=== PATIENT | female | born 1975 | race Caucasian/White ===

== ENCOUNTER 2024-01-28 10:40 | Outpatient (CLI) | payer OTHER, SELFPAY ==
[2024-02-04 03:28] LABS: Estradiol, Ultrasensitive 225 pg/mL
== END 2024-01-28 10:41 | disposition home or self-care (01) ==
LOC: ANHLAB 10:43
PROVIDERS: PCP Internal Medicine; Visit Provider Student in an Organized Health Care Education/Training Program
DX: N95.1 Menopausal and female climacteric states (principal)
CPT/HCPCS: 36415; 82670; 83001; 84443

== ENCOUNTER 2025-03-30 09:20 | Outpatient (CLI) | payer OTHER, SELFPAY ==
--- OUTSIDE RECORDS SUMMARY | 2025-03-30 09:35 | XMS_ITS | Referral Summary ---
Author Organization [facility] Medical Office Building A Address [address] [place] [address] Care Team Providers Care Supervisor Electron Tube Processing Name Role Phone Jose Enrique Antonio MD Primary Care Provider + Encounters Date Type Department Care Team Description 02/02/2025 Results Follow-Up [facility] Primary Care at [address] [place] [address] Charlie Dalton MD XR Hip Right 2 or 3 Views 01/27/2025 10:58 AM CDT - 01/27/2025 11:59 PM CDT Hospital Encounter [facility] [address] [place] [address] Right hip pain Discharge Disposition: Discharge to home or self care from Last 3 Months Allergies Active Allergy Reactions Criticality Noted Date Comments Cat Hair Standardized Allergenic Extract Medications levothyroxine (SYNTHROID, LEVOTHROID) 50 mcg tablet TAKE 1 TABLET BY MOUTH ONE TIME PER DAY. 30 tablet 7 Active jdeztmtm-kiw-ad rrous gluconate (CENTRUM) 0.6 mg iron/mL liquid Active iron 18 mg tablet Take by mouth Active cholecalciferol (VITAMIN D-3) 25 mcg (1,000 unit) tablet Take 1 tablet (1,000 Units total) by mouth daily Active albuterol HFA (PROVENTIL HFA,VENTOLIN HFA,PROAIR HFA) 90 mcg/actuation inhaler Inhale 2 puffs every 4 (four) hours as needed for wheezing 1 each 1 Active albuterol 2.5 mg /3 mL (0.083 %) nebulizer solution Take 3 mL (2.5 mg total) by nebulization every 6 (six) hours as needed for wheezing 75 mL 1 Active escitalopram (LEXAPRO) 20 mg tablet 3 Active fluconazole (DIFLUCAN) 150 mg tabletIndicatio ns:Antibiotic-i nduced yeast infection Take 1 tablet (150 mg total) by mouth as directed Take one tab now. Repeat in 7 days if symptoms persist. 2 tablet 3 Active Additional Information Patient not taking.Reported on 04/25/2024 triamterene-hyd roCHLOROthiazid e 37.5-25 mg per tablet/capsule Take 1 tablet/capsule by mouth daily Active Active Problems Problem Noted Date Diagnosed Date COVID-19 09/08/2021 Healthcare maintenance 05/25/2017 Medication management 05/25/2017 Hypothyroidism 01/30/2014 Overview (12/20/2016): HYPOTHYROIDISM NOS Vitamin D deficiency 10/09/2012 Overview (12/20/2016): VITAMIN D DEFICIENCY NOS Immunizations Immunization Administration Dates Next Due MMR 04/27/2013 Tdap 07/07/2007 Social History Tobacco Use Types Packs/Day Years Used Date Smoking Tobacco: Never Smokeless Tobacco: Never Alcohol Use Standard Drinks/Week Comments No 0 (1 standard drink = 0.6 oz pur e alcohol) Comments No Sex and Gender Information Value Date Recorded Sex Assigned at Not on file 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 Gender Identity Not on file Sexual Orientation Not on file Last Filed Vital Signs Vital Sign Reading Time Taken Comments Blood Pressure 122/74 04/25/2024 2:36 PM CDT Pulse 54 04/25/2024 2:36 PM CDT Temperature 36.6 C (97.8 F) 04/25/2024 2:36 PM CDT Respiratory Rate 18 04/25/2024 2:36 PM CDT Oxygen Saturation 97% 04/25/2024 2:36 PM CDT Inhaled Oxygen Concentration - - Weight 72.6 kg (160 lb) 04/25/2024 2:36 PM CDT Height 176.5 cm (5' 9.5) 12/12/2022 7:17 PM CDT Body Mass Index 23.29 12/12/2022 7:17 PM CDT Plan of Treatment Not on file Medical Devices Implanted Type Area Armature Connector Device Identifier Shelf Expiration Date Model / Serial / Lot Bard Peripheral Vascular [id number] Ultraclip Bard 17ga 10cm 2 Trigger Permanent Ultrasound - [id number] - [id number] Implanted:Qty: 1 on 12/31/2019 by Lavon Langley MD at [facility] Breast Right: Breast Bard Peripheral Vascular 10/13/2022 [id number] / [id number] / Procedures Procedure Name Priority Date/Time Associated Diagnosis Comments XR HIP RIGHT 2 OR 3 VIEWS Schedule Routine, Read Routine (OP Routine) 01/27/2025 11:10 AM CDT Right hip pain DIAGNOSTIC MAMMOGRAM BILATERAL W OCTAVIO Schedule Routine, Read Routine (OP Routine) 05/27/2024 11:02 AM CDT Mass of breast, unspecified laterality from Last 3 Months or Most Recently Relevant to Health Maintenance Results * XR Hip Right 2 or 3 Views (01/27/2025 11:10 AM CDT) Anatomical Region Laterality Modality Lower Extremities, Hip, Pelvis Right C omputed Radiography 02/01/2025 3:43 PM CDT Narrative 02/01/2025 3:44 PM CDT EXAM DESCRIPTION: XR HIP RIGHT 2 OR 3 VIEWS REASON FOR STUDY: other Pt states pain in the right hip when running or walking quickly x 2 - 3 months Denies any injuries / surgeries / hx of fractures FINDINGS: Two views submitted without comparison. No acute fracture. Alignment is normal. The right hip joint space is normal. IMPRESSION: Normal right hip joint space evaluation. THIS IS AN ELECTRONICALLY VERIFIED FINAL REPORT 02/01/2025 3:44 PM - Electronically signed by Madi Hein M.D. MF: [email or web address] Report ID: [id number] Reading Location: [id number] Procedure Note Madi Hein MD - 02/01/2025 EXAM DESCRIPTION: XR HIP RIGHT 2 OR 3 VIEWS REASON FOR STUDY: other Pt states pain in the right hip when running or walking quickly x 2 - 3months Denies any injuries / surgeries / hx of fractures FINDINGS: Two views submitted without comparison. No acute fracture. Alignment is normal. The right hip joint space isnormal. IMPRESSION: Normal right hip joint space evaluation. THIS IS AN ELECTRONICALLY VERIFIED FINAL REPORT 02/01/2025 3:44 PM - Electronically signed by Madi Hein M.D. MF: JEFFERSON Report ID: [id number] Reading Location: [place] [address] us Charlie Dalton MD IMG XR PROCEDURES Final Result * Diagnostic Mammogram Bilateral W Octavio (05/27/2024 11:02 AM CDT) Anatomical Region Laterality Modality Breast Bilateral Mammography 05/27/2024 12:0 0 PM CDT Impressions 05/27/2024 12:00 PM CDT 1. Benign postbiopsy changes in the right breast as detailed above. No suspicious interval change involving the right breast on mammogram. 2. No mammographic evidence of malignancy in either breast. Screening mammogram in one year is recommended. BI-RADS: 2 - Benign. The patient has been or will be notified of these findings and recommendations. Electronically signed by: Segun Briggs M.D. Narrative 05/27/2024 12:00 PM CDT EXAMINATION: DIAGNOSTIC MAMMOGRAM BILATERAL W OCTAVIO ORDERING HEALTHCARE PROVIDER: SIOBHAN MOREIRA HISTORY: 48-year-old female presents for follow-up status post benign ultrasound-guided biopsy of the right breast in December 2019. Left screening mammogram. No current breast complaints. COMPARISON: Ultrasound guided breast biopsy 12/31/2019. Diagnostic mammogram and breast ultrasound 12/10/2019 03/16/2020. Screening mammogram 11/23/2019 and 09/03/2018. TECHNIQUE: CC and MLO views of the bilateral breasts were obtained with digital technique using breast tomosynthesis with C view. Computer aided detection was utilized. FINDINGS: BREAST DENSITY: The tissue of the bilateral breasts is heterogeneously dense, which may obscure small masses. MAMMOGRAM FINDINGS: There is a biopsy marking clip in the right breast at the 6 to 7 o'clock position, middle depth. This was placed at the time of the prior benign ultrasound-guided biopsy performed in December 2019. This biopsy marking clip is located approximately 1.2 cm superior to the MLO view asymmetry of concern seen on prior mammography, suggesting either mammographic-sonographic discordance or mild clip migration. However, this asymmetry has not suspiciously changed mammographically since November 2019, evidence of a benign etiology based on documented stability of at least 2 years. There is no new suspicious finding in either breast on mammogram. Siobhan Moreira MD IMG MAMMO PROCEDURES Fin al Result from Last 3 Months or Most Recently Relevant to Health Maintenance Insurance [facility] Care Teams Supervisor Electron Tube Processing Relationship Specialty Start Date End Date Jose Enrique Antonio MD [address] [place] [address] PCP - General 12/14/16
--- OUTSIDE RECORDS SUMMARY | 2025-03-30 09:35 | XMS_ITS | Encounter Summary ---
Author Organization [facility] Healthcare Address [address] [place] [id number] Care Team Providers Care Web Site Developer Name Role Phone Jose Enrique Antonio MD Primary Care Provider + Encounter Details Date Type Department Care Team ([facility] st Contact Info) Description 02/02/2025 Results Follow-Up [facility] Medical Group Primary Care at [address] [place] [phone] Charlie Dalton MD [address] [place] [address] [address] [place] [address] XR Hip Right 2 or 3 Views Social History Tobacco Use Types Packs/Day Years Used Date Smoking Tobacco: Never Smokeless Tobacco: Never Alcohol Use Standard Drinks/Week Comments No 0 (1 standard drink = 0.6 oz pur e alcohol) Comments No Sex and Gender Information Value Date Recorded Sex Assigned at Not on file 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 [place] [address] PCP - General 12/14/16 documented as of this encounter
--- OUTSIDE RECORDS SUMMARY | 2025-03-30 09:35 | XMS_ITS | Clinical Summary ---
Author Organization [facility] Medical Office Building A Address [address] [place] [address] Care Team Providers Care Account Manager Relief Name Role Phone Jose Enrique Antonio MD Primary Care Provider + Allergies Active Allergy Reactions Criticality Noted Date Comments Cat Hair Standardized Allergenic Extract Medications levothyroxine (SYNTHROID, LEVOTHROID) 50 mcg tablet TAKE 1 TABLET BY MOUTH ONE TIME PER DAY. 30 tablet 7 Active wxeoouck-htn-uu rrous gluconate (CENTRUM) 0.6 mg iron/mL liquid [...] 10/09/2012 Overview (12/20/2016): VITAMIN D DEFICIENCY NOS Encounters Date Type Department Care Team Description 02/02/2025 Results Follow-Up [facility] Primary Care at [address] [place] [address] Charlie Dalton MD XR Hip Right 2 or 3 Views 01/27/2025 10:58 AM CDT - 01/27/2025 11:59 PM CDT Hospital Encounter [facility] [address] [place] [address] Right hip pain Discharge Disposition: Discharge to home or self care from Last 3 Months Immunizations Immunization Administration Dates Next Due MMR 04/27/2013 Tdap 07/07/2007 Surgical History Surgery Date Site/Laterality Comments TONSILLECTOMY 09/16/1992 - 09/15/1993 Tonsillectomy OTHER SURGICAL HISTORY 09/16/2003 - 09/15/2004 D&C OTHER SURGICAL HISTORY varicose veins: embolization OTHER SURGICAL HISTORY 09/16/2011 - 09/15/2012 vein repair DILATION AND CURETTAGE OF UTERUS BREAST BIOPSY 12/31/2019 Right Medical History Medical History Date Comments Hx Other Medical 01-OB Hx Other Medical 10/2010 varicose veins Medication monitoring encounter Anemia Thyroid disease Urinary tract infection Family History Medical History Relation Name Comments Heart disease Father Parkinsonism Mother Parkinson's dis ease; Thyroid disease Other Family histo ry of Thyroid disorder; Mental illness Sister Seizures Sister Relation Name Status Comments Father Mother Other Sister Social History Tobacco Use Types Packs/Day Years Used Date Smoking Tobacco: Never Smokeless Tobacco: Never Alcohol Use Standard Drinks/Week Comments No 0 (1 standard drink = 0.6 oz pur e alcohol) Comments No Sex and Gender Information Value Date Recorded Sex Assigned at Not on file 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 Gender Identity Not on file Sexual Orientation Not on file Obstetrics History Para Term AB IAB SAB Ectopic Multiple Livin g Live Births 7 5 5 Date Outcome GA Total Labor Labor/2nd/3rd Weight Sex Type Anes PTL Melissa A1 A5 Name Clin Term Term Term Term Term Last Filed Vital Signs Vital Sign Reading [...] 12/12/2022 7:17 PM CDT Plan of Treatment Health Maintenance Due Date Last Done Comments Cervical Cancer Screening 1975 Colon Cancer Screening-Colonoscopy 1975 Hepatitis C Screening 1975 Hepatitis B Screening 1993 Regular Well Visit/Exam 18-64 1993 DTaP/Tdap/Td Vaccine (2 - Td or Tdap) 07/07/2017 07/07/2007 Depression Screening 05/27/2018 05/27/2017 Covid-19 Vaccine (3 2023-2 5 season) 2024 04/07/2021, 03/17/2021 Influenza Vaccine (Season Ended) 2025 Breast Cancer Screening-Mammogram 05/27/2025 05/27/2024, 11/23/2019, 09/03/2018 Pneumococcal vaccine <65 Aged Out No longer eligible based on patient's age to complete this topic Medical Devices Implanted Type Area Case Packer Device Identifier Shelf Expiration Date Model / Serial / Lot Bard Peripheral Vascular [id number] Ultraclip Bard 17ga 10cm 2 Trigger Permanent Ultrasound - [id number] - [id number] Implanted:Qty: 1 on 12/31/2019 by Lavon Langley MD at [facility] Breast Right: Breast Bard Peripheral Vascular 10/13/2022 [id number] / [id number] / Procedures Procedure Name Priority Date/Time Associated [...] 3:44 PM - Electronically signed by Madi PAULINO Report ID: [id number] Reading Location: [id number] Procedure Note Madi Hein MD - 02/01/2025 [...] 3:44 PM - Electronically signed by Madi PAULINO: JEFFERSON Report ID: [id number] Reading Location: [id number] Charlie Dalton MD IMG XR PROCEDURES Final [...] Most Recently Relevant to Health Maintenance Insurance [facility] Address: [address] [address] [facility] Address: [address] [address] [place] [address] [facility] Address: [facility] [address] [place] [address] Care Teams Account Manager Relief Relationship Specialty Start Date End Date Jose Enrique Antonio MD [address] [place] [address] PCP - General 12/14/16
[2025-03-30 11:07] LABS: Thyroid Stimulating Hormone 2.850 uIU/mL (0.465-4.680)
[2025-03-31 11:08] LABS: FSH 28.2 mIU/mL (.)
[2025-04-04 13:07] LABS: Estradiol, Sensitive 182.0 pg/mL (.)
== END 2025-03-30 09:21 | disposition home or self-care (01) ==
LOC: ANHLAB 09:21
PROVIDERS: PCP Internal Medicine; Visit Provider Student in an Organized Health Care Education/Training Program
DX: N95.1 Menopausal and female climacteric states (principal)
CPT/HCPCS: 36415; 82670; 83001; 84443